=== PATIENT | male | born 1985 ===

== ENCOUNTER 2020-02-12 04:28 | Outpatient (REF) | payer OTHER, SELFPAY ==
[2020-02-13 17:16] LABS: SARS-CoV-2 RNA Not Detected (NotDetected); SARS-CoV-2 RNA Source Nasal/Nares
== END 2020-02-12 04:48 ==
LOC: LBO 04:28
PROVIDERS: Visit Provider Dentist Pediatric Dentistry
DX: Z20.828 Contact with and (suspected) exposure to other viral communicable diseases (principal)
CPT/HCPCS: U0003

== ENCOUNTER 2020-06-17 03:20 | Outpatient (REF) | payer SELFPAY ==
[2020-06-18 01:21] LABS: COVID-19 RT-PCR UVMMC Result Negative (Negative)
== END 2020-06-17 03:21 | disposition home or self-care (01) ==
LOC: LBO 03:20
PROVIDERS: Visit Provider Dentist Pediatric Dentistry
DX: Z20.822 Contact with and (suspected) exposure to COVID-19 (principal)
CPT/HCPCS: U0003